=== PATIENT | female | born 1935 | race Caucasian/White ===

== ENCOUNTER 2017-09-14 15:48 | Emergency (ER) | payer MEDICARE ==
[2017-09-14 15:56] VITALS: BP 181/82
[2017-09-14] MEDS ORDERED: Tetan/Diph/Pertus SYR(Tdap)* 0.5 ML SYR(BOOSTRIX) use SYR IM ONE (16:33)
[2017-09-14] MEDS ORDERED: Lidocaine 2% PF * 5 ML VIAL INJ ONE (16:34)
--- NOTE | 2017-09-14 17:23 | UC ---
Laceration HPI - HPI Summary HPI Summary: 30 MINUTES UX LEAD SLIPPED ON STEPS HIT GROUND AGAINST GLASSES GLASSES RIM CUT INTO EYEBROW WITH LACERATION OF RIGHT EYEBROW, NO LOC. NO NECK PAIN. NO TOOTH PAIN. NO PAIN WITH EYE MOVEMENT. NO HEADACHE. NO DIZZINESS. ON NO BLOOD THINNERS. - History Of Current Complaint Chief Complaint: UCLaceration Stated Complaint: BROW LAC Time Seen by Provider: 09/14/17 16:13 Hx Obtained From: Patient Laceration Location: Face Mechanism Of Injury: Blunt Trauma Onset/Duration: Sudden Onset, Lasting Minutes Severity: Mild Aggravating Factors: Nothing - Allergies/Home Medications Allergies/Adverse Reactions: Allergies Allergy/AdvReac Type Severity Reaction Status Date / Time No Known Allergies Allergy Verified 09/14/17 15:56 Home Medications: Home Medications Calcium-Magnesium W/ Vitamin D [Calcium 600/Magnes... 200-100-33.3 mg-mg-Unit] 1 tab PO DAILY 09/14/17 [History Confirmed 09/14/17] Cholecalciferol [Vitamin D] 1 tab PO DAILY 09/14/17 [History Confirmed 09/14/17] PMH/Surg Hx/FS Hx/Imm Hx Previously Healthy: Yes - Surgical History Surgical History: None - Family History Known Family History: Negative: Blood Disorder - Social History Occupation: Retired Lives: With Family Alcohol Use: None Substance Use Type: None Smoking Status (MU): Never Smoked Tobacco Review of Systems Constitutional: Negative Skin: Other - LACERATION RIGHT EYEBROW Eyes: Negative ENT: Negative Respiratory: Negative Cardiovascular: Negative Gastrointestinal: Negative Genitourinary: Negative Motor: Negative Neurovascular: Negative Musculoskeletal: Negative Neurological: Negative Psychological: Negative Is Patient Immunocompromised?: No All Other Systems Reviewed And Are Negative: Yes Physical Exam Triage Information Reviewed: Yes Appearance: Well-Appearing, No Pain Distress, Well-Nourished Vital Signs: Initial Vital Signs Temp 97.7 F 09/14/17 15:53 Pulse 100 09/14/17 15:53 Resp 18 09/14/17 15:53 BP 181/82 09/14/17 15:53 Pulse Ox 98 09/14/17 15:53 Vital Signs Reviewed: Yes Eye Exam: Normal ENT Exam: Normal ENT: Positive: Normal ENT inspection Dental Exam: Normal Neck exam: Normal Neck: Positive: Supple, Nontender, No Lymphadenopathy Respiratory Exam: Normal Respiratory: Positive: Chest non-tender, Lungs clear, Normal breath sounds, No respiratory distress, No accessory muscle use Cardiovascular Exam: Normal Cardiovascular: Positive: RRR, No Murmur, Pulses Normal Abdominal Exam: Normal Musculoskeletal Exam: Normal Musculoskeletal: Positive: Strength Intact, ROM Intact Neurological Exam: Normal Neurological: Positive: Alert, Muscle Tone Normal, Other: - CN 2-12 INTACT Psychological Exam: Normal Psychological: Positive: Normal Response To Family Skin: Positive: Other - LACERATION RIGHT EYEBROW Laceration Repair - Laceration Repair 1 Description: Irregular Laceration Size After Repair: Length (cm) - 2, Width (mm) - 4, Depth (mm) - 4 Type Injection: Local Anesthesia Used: 2.0% Lido Cleansing Completed Via Routine Prep: Yes Irrigation With Pressure Irrigation Device: Yes Closure Material: Sutures - 4 X 4-0 PROLENE Closure Method: Single Layer Suture Of: Skin, SQ Suture Type: Prolene Laceration Course/Dx - Differential Dx - Laceration/Wound Differental Diagnoses: Laceration Provider Diagnoses: LACERATION RIGHT EYEBROW WITH REPAIR. Discharge - Discharge Plan Condition: Stable Disposition: HOME Patient Education Materials: Care For Your Stitches (ED), Laceration (ED) Referrals: Chaz Albert MD [Primary Care Provider] - Additional Instructions: PLEASE HAVE SUTURES REMOVED IN 5 TO 7 DAYS
== END 2017-09-14 17:26 | disposition home or self-care (01) ==
LOC: UCEAST 15:48
DX: S01.111A Laceration without foreign body of right eyelid and periocular area, initial encounter (principal); W10.9XXA Fall (on) (from) unspecified stairs and steps, initial encounter; Y93.9 Activity, unspecified; Y92.9 Unspecified place or not applicable; Y99.9 Unspecified external cause status
CPT/HCPCS: 12011; 90715; 99211; G0463

== ENCOUNTER 2017-09-21 12:28 | Emergency (ER) | payer MEDICARE | END 2017-09-21 12:30 | disposition left against medical advice (07) | LOC: UCEAST 12:28 | DX: T14.8XXD Other injury of unspecified body region, subsequent encounter (principal); Z53.21 Procedure and treatment not carried out due to patient leaving prior to being seen by health care provider ==

== ENCOUNTER 2017-09-22 07:03 | Emergency (ER) | payer MEDICARE ==
[2017-09-22 07:11] VITALS: BP 163/84
[2017-09-22] MEDS ORDERED: Benzoin Compound STICK ONE (07:17)
[2017-09-22] MEDS ORDERED: Benzoin COMPOUND swab* 1 applicator pak TOPICAL ONE (07:22)
--- NOTE | 2017-09-22 07:25 | UC ---
HPI Wound/Suture Re-check - HPI Summary HPI Summary: 82 yo female her for suture removal sutures in one week no complaints right eye brow lac - History Of Current Complaint Chief Complaint: UCLaceration Stated Complaint: SUTURE REMOVAL Time Seen by Provider: 09/22/17 07:08 Onset/Duration: Sudden Onset Pain Intensity: 0 Pain Scale Used: 0-10 Numeric - Allergies/Home Medications Allergies/Adverse Reactions: Allergies Allergy/AdvReac Type Severity Reaction Status Date / Time Vitamin B12 Allergy See Comment Verified 09/22/17 07:12 PMH/Surg Hx/FS Hx/Imm Hx Previously Healthy: Yes Cardiovascular History: Hypertension - whitecoat - Surgical History Surgical History: None - Family History Known Family History: Positive: Hypertension Negative: Blood Disorder - Social History Alcohol Use: None Substance Use Type: None Smoking Status (MU): Never Smoked Tobacco - Immunization History Most Recent Influenza Vaccination: 07/2017 Most Recent Tetanus Shot: 09/21/17 Review of Systems Constitutional: Negative Skin: Bruising Eyes: Negative ENT: Negative Respiratory: Negative Cardiovascular: Negative Gastrointestinal: Negative Genitourinary: Negative Motor: Negative Neurovascular: Negative Musculoskeletal: Negative Neurological: Negative Psychological: Negative Is Patient Immunocompromised?: No All Other Systems Reviewed And Are Negative: Yes Physical Exam Triage Information Reviewed: Yes Appearance: Well-Appearing, No Pain Distress, Well-Nourished Vital Signs: Initial Vital Signs Temp 98.2 F 09/22/17 07:04 Pulse 98 09/22/17 07:04 Resp 16 09/22/17 07:04 BP 163/84 09/22/17 07:04 Pulse Ox 97 09/22/17 07:04 Vital Signs Reviewed: Yes Eyes: Positive: Conjunctiva Clear ENT: Positive: Hearing grossly normal. Negative: Nasal congestion, Nasal drainage, Tonsillar swelling, Tonsillar exudate, Trismus, Muffled voice, Hoarse voice, Dental tenderness, Sinus tenderness Neck: Positive: Supple, Nontender, No Lymphadenopathy Respiratory: Positive: Lungs clear, Normal breath sounds, No respiratory distress, No accessory muscle use Cardiovascular: Positive: RRR, No Murmur Musculoskeletal: Positive: ROM Intact, No Edema Neurological: Positive: Alert Psychological Exam: Normal Skin Exam: Other - fading right black eye healing lac Course/Dx - Course Course Of Treatment: sutures removed. steri strips applied - Differential Dx - Laceration/Wound Provider Diagnoses: suture removal right eye brow Discharge - Discharge Plan Condition: Stable Disposition: HOME Referrals: Chaz Albert MD [Primary Care Provider] - If Needed Additional Instructions: sutures removed call for any questions return for any problems if steristrips are still on after one week you may remove them
== END 2017-09-22 07:25 | disposition home or self-care (01) ==
LOC: UCEAST 07:03
DX: S01.111D Laceration without foreign body of right eyelid and periocular area, subsequent encounter (principal); X58.XXXD Exposure to other specified factors, subsequent encounter; Y92.9 Unspecified place or not applicable
CPT/HCPCS: 99211; G0463